=== PATIENT | female | born 1990 | race Caucasian/White ===

== ENCOUNTER 2018-08-24 16:35 | Emergency (ER) | payer OTHER ==
[2018-08-24] MEDS ORDERED: CEPHALEXIN500 M1 PO (17:13)
[2018-08-24] MEDS ORDERED: BACTROBAN CREAM15 GM PO (17:24)
== END 2018-08-24 17:33 | disposition home or self-care (01) ==
LOC: ED 16:35
DX: O99.511 Diseases of the respiratory system complicating pregnancy, first trimester (principal); O99.331 Smoking (tobacco) complicating pregnancy, first trimester; J01.90 Acute sinusitis, unspecified; J34.0 Abscess, furuncle and carbuncle of nose; F17.200 Nicotine dependence, unspecified, uncomplicated; Z3A.01 Less than 8 weeks gestation of pregnancy